=== PATIENT | female | born 1995 | race Two or more races ===

== ENCOUNTER 2017-07-31 21:27 | Emergency (ER) | payer MEDICAID ==
[~2017-07-31] VITALS: Ht 165.1 cm; Wt 72.6 kg
[2017-07-31 21:43] VITALS: BP 141/91
[2017-07-31] MEDS ORDERED: IBUPROFEN 800 MG TAB PO ONE (22:30)
== END 2017-07-31 23:40 | disposition home or self-care (01) ==
LOC: ER 21:27
DX: D16.21 Benign neoplasm of long bones of right lower limb (principal)
CPT/HCPCS: 73562